=== PATIENT | female | born 1960 | race Two or more races ===

== ENCOUNTER 2024-11-15 19:16 | Emergency (ER) | payer SELFPAY ==
[~2024-11-15] VITALS: Ht 175.3 cm; Wt 79.8 kg
[2024-11-15 20:04] LABS: BASOPHILS % (AUTO) 0.1 % (0.0-2.0); EOSINOPHILS % (AUTO) 0.8 % (0.0-7.0); HEMATOCRIT 42.8 % (31.2-41.9); HEMOGLOBIN 14.1 g/dL (10.9-14.3); LYMPHOCYTES # (AUTO) 1.1 K/uL (0.8-4.8); LYMPHOCYTES % (AUTO) 19.2 % (20.5-51.5); MEAN CORPUSCULAR HEMOGLOBIN 30.7 uug (24.7-32.8); MEAN CORPUSCULAR HGB CONC 33 g/dL (32.3-35.6); MEAN CORPUSCULAR VOLUME 93.6 fL (75.5-95.3); MONOCYTES # (AUTO) 0.2 K/uL (0.1-1.30); NEUTROPHILS # (AUTO) 4.6 K/uL (1.8-8.9); NEUTROPHILS % (AUTO) 76.9 % (38.5-71.5); PLATELET COUNT (AUTO) 264 K/uL (179-408); RED BLOOD CELL COUNT(AUTO) 4.58 MIL/uL (3.63-4.92); RED CELL DISTRIBUTION WIDTH 13.8 % (12.3-17.7)
[2024-11-15 20:05] LABS: DIFFERENTIAL COMMENT 1
[2024-11-15 20:12] LABS: CALCIUM 9.5 mg/dL (8.5-10.1); CREATININE 1.1 mg/dL (0.6-1.3); POTASSIUM 3.3 mmol/L (3.5-5.1)
[2024-11-15] MEDS ORDERED: DICYCLOMINE HCL LIQ 10 MG/5 ML UDC ONE (20:17)
[2024-11-15] MEDS ORDERED: IBUPROFEN 600 MG TABLET ONE (20:18)
[2024-11-15] MEDS ORDERED: ONDANSETRON HCL 4 MG TABLET ONE (20:18)
[2024-11-15] MEDS: DICYCLOMINE HCL LIQ 10 MG/5 ML UDC PO ONE (20:20)
[2024-11-15] MEDS: ONDANSETRON ODT 4 MG TAB.RAPDIS SL ONE (20:20)
[2024-11-15] MEDS: IBUPROFEN 600 MG TABLET PO ONE (20:20)
[2024-11-15 20:21] LABS: ALBUMIN 3.6 g/dL (3.4-5.0); BILIRUBIN,DIRECT 0.1 mg/dL (0.0-0.2); BILIRUBIN,TOTAL 0.3 mg/dL (0.2-1.0); TOTAL PROTEIN, SERUM 7.6 g/dL (6.4-8.2)
[2024-11-15] MEDS ORDERED: DICY20TA11 PO (21:06)
[2024-11-15] MEDS ORDERED: ONDA4TAB11 PO (21:06)
[2024-11-15 21:28] VITALS: BP 118/55; TEMP 98.4; O2SAT 98
[2024-11-15 22:18] LABS: *OCCULT BLOOD STOOL NEGATIVE (NEGATIVE)
== END 2024-11-15 22:21 | disposition home or self-care (01) ==
LOC: ER 19:16
DX: R19.7 Diarrhea, unspecified (principal); R10.9 Unspecified abdominal pain; F17.290 Nicotine dependence, other tobacco product, uncomplicated; Z20.822 Contact with and (suspected) exposure to COVID-19
CPT/HCPCS: 36415; 83690; 85025; A4606; A4663; Q0162